=== PATIENT | male | born 2000 | race Asian ===

== ENCOUNTER 2021-02-04 13:08 | Emergency (ER) | payer SELFPAY ==
[2021-02-04] MEDS ORDERED: HYDROcodone/ACETAMINOPHEN 5-325 MG TAB PO ONE (13:26)
[2021-02-04] MEDS ORDERED: CLINDAMYCIN 600 MG/50 mL 600 MG/50 ML BAG IV ONE (13:26)
--- NOTE | 2021-02-04 14:00 | XRay Report ---
RIGHT HAND 3 VIEW(S) INDICATION / CLINICAL INFORMATION: right middle finger swelling and soft tissue wound COMPARISON: None available. FINDINGS: BONES / JOINT(S): No acute fracture or subluxation. No significant arthritis. SOFT TISSUES: Moderate soft tissue swelling is seen along the ulnar aspect of long finger near the PI P joint. No radiopaque foreign body ADDITIONAL FINDINGS: None. Signer Name: Perfecto Whitlock MD Signed: 02/04/2021 1:55 PM Workstation Name: [id number]
[2021-02-04 14:07] LABS: Hematocrit 50.2 % (35.5-45.6); Hemoglobin 16.6 gm/dl (11.8-15.2); Mean Corpuscular HGB Conc 33 % (32-34); Mean Corpuscular Volume 91 fl (84-94); Platelet Count 272 K/mm3 (140-440); Red Blood Count 5.52 M/mm3 (3.65-5.03); Red Cell Distribution Width 13.1 % (13.2-15.2)
[2021-02-04] MEDS ORDERED: TETANUS,DIPH,PERTUSS(ACELL) VACCINE 0.5 ML SYRINGE IM ONE (14:27)
--- NOTE | 2021-02-04 14:28 | Emergency Department Report ---
- General Chief Complaint: Wound/Laceration Stated Complaint: RIGHT MIDDLE FINGER PAIN Time Seen by Provider: 02/04/21 13:17 Source: patient Mode of arrival: Ambulatory Limitations: Language Barrier - History of Present Illness Initial Comments: Malaysian interpretation by Ms. Tineo, software security consultant who was present for patient entire encounter Patient is a 20-year-old male presents emergency room with complaints of right middle finger swelling that began 3 days ago. Patient reports 4 days ago he was working with wood and not sure if he got a splinter. He states that he then began to pick at the area and try to see if there is something to remove. He states that it then began swelling and having a clear drainage. He reports that it became painful and red. He denies any purulent drainage, fever, chills, vomiting, numbness, weakness. He is still able to move the finger. No past medical history. No allergies to medications. He is unsure of his last tetanus immunization. - Related Data Home Medications Medication Instructions Recorded Confirmed Last Taken No Known Home Medications [No 02/04/21 02/04/21 Unknown Reported Home Medications] Allergies Allergy/AdvReac Type Severity Reaction Status Date / Time No Known Allergies Allergy Verified 02/04/21 13:48 ED Review of Systems ROS: Stated complaint: RIGHT MIDDLE FINGER PAIN Other details as noted in HPI Comment: All other systems reviewed and negative ED Past Medical Hx - Past Medical History Previous Medical History?: No - Surgical History Past Surgical History?: No - Medications Home Medications: Home Medications Medication Instructions Recorded Confirmed Last Taken Type No Known Home Medications [No 02/04/21 02/04/21 Unknown History Reported Home Medications] ED Physical Exam - General Limitations: No Limitations General appearance: alert, in no apparent distress - Head Head exam: Present: atraumatic, normocephalic - Eye Eye exam: Present: normal appearance - ENT ENT exam: Present: mucous membranes moist - Extremities Exam Extremities exam: Present: other (0.5 cm abrasion present to the right middle finger, no obvious foreign body visualized or palpable, there is induration with erythema, increased warmth and edema present to the right proximal/mid middle finger, pt is able to fully extend, decreased flex, no drainage, neurovascularly intact) - Neurological Exam Neurological exam: Present: alert, oriented X3 - Psychiatric Psychiatric exam: Present: normal affect, normal mood - Skin Skin exam: Present: warm, dry ED Course Vital Signs 02/04/21 02/04/21 02/04/21 13:13 13:47 15:29 Temperature 98.5 F 98.9 F Pulse Rate 84 87 Respiratory 20 16 Rate Blood Pressure 147/82 122/75 [Right] O2 Sat by Pulse 97 99 99 Oximetry - Consultations Consultation #1: 02/04/21 15:[address] Ariza, orthopedic hand specialist at [facility], he recommended transfer to [facility] ER for evaluation and possible drainage in the ER, will accept and resume care of patient, patient be transferred via EMS ED Medical Decision Making - Lab Data Result diagrams: 02/04/21 14:00 02/04/21 14:00 Lab Results 02/04/21 02/04/21 02/04/21 Range/Units 14:00 14:00 14:00 WBC 13.8 H (4.5-11.0) K/mm3 RBC 5.52 H (3.65-5.03) M/mm3 Hgb 16.6 H (11.8-15.2) gm/dl Hct 50.2 H (35.5-45.6) % MCV 91 (84-94) fl MCH 30 (28-32) pg MCHC 33 (32-34) % RDW 13.1 L (13.2-15.2) % Plt Count 272 (140-440) K/mm3 Sodium 138 (137-145) mmol/L Potassium 4.5 (3.6-5.0) mmol/L Chloride 97.6 L (98-107) mmol/L Carbon Dioxide 26 (22-30) mmol/L Anion Gap 19 mmol/L BUN 12 (9-20) mg/dL Creatinine 0.7 L (0.8-1.3) mg/dL Estimated GFR > 60 ml/min BUN/Creatinine Ratio 17 % Glucose 104 H (75-100) mg/dL Lactic Acid 1.00 (0.7-2.0) mmol/L Calcium 10.2 (8.4-10.2) mg/dL Total Bilirubin 0.50 (0.1-1.2) mg/dL AST 21 (5-40) units/L ALT 31 (7-56) units/L Alkaline Phosphatase 125 (35-129) units/L C-Reactive Protein 2.40 H (0.00-1.30) mg/dL Total Protein 8.2 (6.3-8.2) g/dL Albumin 5.3 H (3.9-5) g/dL Albumin/Globulin Ratio 1.8 % - Radiology Data Radiology results: report reviewed Ordering Physician: BERNABE LISA Date of Service: 02/04/21 Procedure(s): XR hand 3+V RT Accession Number(s): [id number] cc: BERNABE LISA Fluoro Time In Minutes: RIGHT HAND 3 VIEW(S) INDICATION / CLINICAL INFORMATION: right middle finger swelling and soft tissue wound COMPARISON: None available. FINDINGS: BONES / JOINT(S): No acute fracture or subluxation. No significant arthritis. SOFT TISSUES: Moderate soft tissue swelling is seen along the ulnar aspect of long finger near the PIP joint. No radiopaque foreign body ADDITIONAL FINDINGS: None. Signer Name: Perfecto Whitlock MD Signed: 02/04/2021 1:55 PM Workstation Name: [id number] Transcribed By: TL Dictated By: Perfecto Whitlock MD Electronically Authenticated By: Perfecto Whitlock MD Signed Date/Time: 02/04/211354 DD/ 54 TD/TT: - Medical Decision Making Malaysian interpretation by Ms. Tineo, software security consultant who was present for patient entire encounter Patient is a 20-year-old male presents emergency room with complaints of right middle finger swelling that began 3 days ago. Patient reports 4 days ago he was working with wood and not sure if he got a splinter. He states that he then began to pick at the area and try to see if there is something to remove. He states that it then began swelling and having a clear drainage. He reports that it became painful and red. He denies any purulent drainage, fever, chills, vomiting, numbness, weakness. He is still able to move the finger. No past medical history. No allergies to medications. He is unsure of his last tetanus immunization. Vitals are stable. On exam: 0.5 cm abrasion present to the right middle finger, no obvious foreign body visualized or palpable, there is induration with erythema, increased warmth and edema present to the right proximal/mid middle finger, pt is able to fully extend, decreased flex, no drainage, neurovascularly intact. Examination appears consistent with cellulitis/finger abscess of his dominant hand. Do not suspect septic joint. X-ray right hand BONES / JOINT(S): No acute fracture or subluxation. No significant arthritis. SOFT TISSUES: Moderate soft tissue swelling is seen along the ulnar aspect of long finger near the PIP joint. No radiopaque foreign body. ADDITIONAL FINDINGS: None. White blood cell count is 13.8, CRP is 2.4. Patient given Tdap, pain medication, IV clindamycin. Discussed case with Dr. Patel, ER attending who recommended consultation with hand specialist. we do not have orthopedic coverage at this facility today. Spoke to Dr. Ariza, orthopedic hand specialist at [facility], he recommended transfer to [facility] ER for evaluation and possible drainage in the ER, will accept and resume care of patient, patient be transferred via EMS. discussed all findings with pt who is agreeable with plan. Critical care attestation.: If time is entered above; I have spent that time in minutes in the direct care of this critically ill patient, excluding procedure time. ED Disposition Clinical Impression: Abscess of finger Qualifiers: Laterality: right Qualified Code(s): L02.511 - Cutaneous abscess of right hand Cellulitis Qualifiers: Site of cellulitis: extremity Site of cellulitis of extremity: upper extremity Laterality: right Qualified Code(s): L03.113 - Cellulitis of right upper limb Leukocytosis Qualifiers: Leukocytosis type: unspecified Qualified Code(s): D72.829 - Elevated white blood cell count, unspecified Disposition: 04 INTERMEDIATE CARE FACILITY Is pt being admited?: No Does the pt Need Aspirin: No Condition: Stable Referrals: PRIMARY CARE, [Primary Care Provider] - 3-5 Days Print Language: JAPANESE
[2021-02-04 14:29] LABS: Alanine Aminotransferase 31 units/L (7-56); Albumin 5.3 g/dL (3.9-5); Blood Urea Nitrogen 12 mg/dL (9-20); Calcium 10.2 mg/dL (8.4-10.2); Hemolysis Index 24
[2021-02-04 14:31] LABS: BUN/Creatinine Ratio 17
--- NOTE | 2021-02-04 15:11 | Event Note ---
The patient was evaluated in the emergency department for symptoms described in the history of present illness. He/she was evaluated in the context of the global COVID-19 pandemic, which necessitated consideration that the patient might be at risk for infection with the virus that causes COVID-19. Institutional protocols and algorithms that pertain to the evaluation of patients at risk for COVID-19 are in a state of rapid change based on information released by regulatory bodies including the CDC and federal and state organizations. These policies and algorithms were followed during the patient's care in the emergency department. Please note that these policies, procedures and recommendations changed on a rapid basis. [id number] evaluation performed. This provider is conversant in Frisian. Patient is a 20-year-old gentleman, who reports that he is right-hand dominant, presenting to the ER today with right middle finger pain, swelling, redness, pus, predominantly on the volar aspect of the right middle finger. There is swelling, redness, and pain with passive range of motion. The patient does have partial range of motion. On the medial aspect of the dorsal PIP, patient is found to have purulent discharge, with redness, pus I have recommended consultation with hand surgeon, since this patient is right- hand dominant, young, and has a reported foreign body. The physician's sales support assistant was gracious enough to discuss this case with the hand surgeon at [facility], who has accepted the patient as an ER to ER transfer with hand surgery consultation. I explained this to the patient who articulated understanding. Medical decision makin-year-old gentleman with right hand infection, cellulitis, abscess and swelling, will require evaluation by hand surgeon, which we cannot provide at this hospital. We do not have a hand surgeon on-call for the emergency room. Patient is awake, alert, protecting his airway, blood pressure stable, and he is suitable for transfer at this time for consultative services not available at this facility. Vital Signs 02/04/21 02/04/21 02/04/21 13:13 13:47 15:29 Temperature 98.5 F 98.9 F Pulse Rate 84 87 Respiratory 20 16 Rate Blood Pressure 147/82 122/75 [Right] O2 Sat by Pulse 97 99 99 Oximetry Lab Results 02/04/21 02/04/21 02/04/21 Range/Units 14:00 14:00 14:00 WBC 13.8 H (4.5-11.0) K/mm3 RBC 5.52 H (3.65-5.03) M/mm3 Hgb 16.6 H (11.8-15.2) gm/dl Hct 50.2 H (35.5-45.6) % MCV 91 (84-94) fl MCH 30 (28-32) pg MCHC 33 (32-34) % RDW 13.1 L (13.2-15.2) % Plt Count 272 (140-440) K/mm3 Sodium 138 (137-145) mmol/L Potassium 4.5 (3.6-5.0) mmol/L Chloride 97.6 L (98-107) mmol/L Carbon Dioxide 26 (22-30) mmol/L Anion Gap 19 mmol/L BUN 12 (9-20) mg/dL Creatinine 0.7 L (0.8-1.3) mg/dL Estimated GFR > 60 ml/min BUN/Creatinine Ratio 17 % Glucose 104 H (75-100) mg/dL Lactic Acid 1.00 (0.7-2.0) mmol/L Calcium 10.2 (8.4-10.2) mg/dL Total Bilirubin 0.50 (0.1-1.2) mg/dL AST 21 (5-40) units/L ALT 31 (7-56) units/L Alkaline Phosphatase 125 (35-129) units/L C-Reactive Protein 2.40 H (0.00-1.30) mg/dL Total Protein 8.2 (6.3-8.2) g/dL Albumin 5.3 H (3.9-5) g/dL Albumin/Globulin Ratio 1.8 % RIGHT HAND 3 VIEW(S) INDICATION / CLINICAL INFORMATION: right middle finger swelling and soft tissue wound COMPARISON: None available. FINDINGS: BONES / JOINT(S): No acute fracture or subluxation. No significant arthritis. SOFT TISSUES: Moderate soft tissue swelling is seen along the ulnar aspect of long finger near the PIP joint. No radiopaque foreign body ADDITIONAL FINDINGS: None. Signer Name: Perfecto Whitlock MD Signed: 02/04/2021 12:55 PM Workstation Name: [id number]
[2021-02-04 15:29] VITALS: BP 122/75
[2021-02-04 17:46] LABS: Total Cells Counted 100
[2021-02-04 17:47] LABS: Anisocytosis 1+; Platelet Estimate Consistent w Auto
== END 2021-02-04 16:52 ==
LOC: ED 13:08
DX: L02.511 Cutaneous abscess of right hand (principal); D72.829 Elevated white blood cell count, unspecified
CPT/HCPCS: 36415; 73130; 80053; 82140; 85007; 85025; 86140; 90471; 90715; 96365; 99285; J7502